=== PATIENT | male | born 1965 | race American Indian/Alaskan Native ===

== ENCOUNTER 2018-07-24 09:57 | Emergency (ER) | payer MEDICAID ==
[2018-07-24 11:10] VITALS: BMI 30.4
[2018-07-24 11:15] VITALS: RESP 18; TEMP 98.5
--- NOTE | 2018-07-24 11:37 | ED PDOC ---
Arrival/HPI - General Chief Complaint: Rib Injury Time Seen by Provider: 07/24/18 11:16 Historian: Patient - History of Present Illness Narrative History of Present Illness (Text): 07/24/18 11:31 Patient is a 53 year old M presenting with 1 day history of R sided chest pain. He reports the pain is on his R anterior chest and R anterior back along dermatomal distribution. He reports that is persistent but worse with movement. Denies trauma. Denies heavy lifting at work. Denies shortness of breath, fever, cough, uri symptoms, flank pain, nausea/vomiting, diarrhea, change in bowel or bladder habits. Denies hematuria. Denies rash. Reports hx of cholecystectomy. Time/Duration: 24 hours Symptom Onset: Gradual Symptom Course: Unchanged Activities at Onset: Light Context: Home Past Medical History - Provider Review Nursing Documentation Reviewed: Yes - Cardiac Hx Cardiac Disorders: Yes Hx Hypertension: Yes - Endocrine/Metabolic Hx Endocrine Disorders: Yes Hx Diabetes Mellitus Type 2: Yes - Psychiatric Hx Substance Use: No - Surgical History Hx Cholecystectomy: Yes - Anesthesia Hx Anesthesia: Yes Hx Anesthesia Reactions: No Hx Malignant Hyperthermia: No Family/Social History - Physician Review Nursing Documentation Reviewed: Yes Family/Social History: No Known Family HX Smoking Status: Heavy Smoker > 10 Cigarettes Daily Hx Alcohol Use: No Hx Substance Use: No Allergies/Home Meds Allergies/Adverse Reactions: Allergies No Known Allergies Allergy (Verified 07/24/18 11:10) Review of Systems - Review of Systems Constitutional: absent: Fevers Eyes: absent: Vision Changes ENT: absent: Hearing Changes Respiratory: absent: SOB, Cough, Sputum, Wheezing Cardiovascular: Chest Pain. absent: Palpitations, Edema, Calf Pain, ELIZALDE, Orthopnea, Syncope Gastrointestinal: absent: Abdominal Pain, Constipation, Diarrhea, Nausea, Vomiting Genitourinary Male: absent: Dysuria Skin: absent: Rash Neurological: absent: Headache, Dizziness, Focal Weakness Psychiatric: absent: Anxiety, Depression Physical Exam Vital Signs Reviewed: Yes Vital Signs Temp Pulse Resp BP Pulse Ox 07/24/18 11:10 98.5 F 85 18 106/71 97 Temperature: Afebrile Blood Pressure: Normal Pulse: Regular Respiratory Rate: Normal Appearance: Positive for: Well-Appearing, Non-Toxic, Comfortable Pain Distress: None Mental Status: Positive for: Alert and Oriented X 3 - Systems Exam Head: Present: Atraumatic, Normocephalic Pupils: Present: PERRL Extroacular Muscles: Present: EOMI Conjunctiva: Present: Normal Mouth: Present: Moist Mucous Membranes Neck: Present: Normal Range of Motion Respiratory/Chest: Present: Clear to Auscultation, Good Air Exchange. No: Respiratory Distress, Accessory Muscle Use Cardiovascular: Present: Regular Rate and Rhythm Abdomen: No: Tenderness, Distention Upper Extremity: Present: Normal Inspection Lower Extremity: Present: Normal Inspection. No: Edema, CALF TENDERNESS Neurological: Present: GCS=15, CN II-XII Intact, Speech Normal, Gait Normal Psychiatric: Present: Alert, Oriented x 3 Medical Decision Making ED Course and Treatment: 07/24/18 11:40 EKG shows NSR at 71bpm with no ST changes 07/24/18 13:55 Chest X-ray reviewed by radiologist, shows no active disease. 07/24/18 13:[address] due to persistent right sided chest pain, however patient disagreed and eloped from the ER. 07/24/18 14:39 Patient returned and agreed to CT. Now patient refusing to stay for imaging. I am concerned that this presentation is early shingles due to dermatome but cannot r/o dissection or other life threatening pathology 07/24/18 14:42 The patient is choosing to leave against medical advice. I have personally explained to the patient that choosing to do so may result in permanent bodily harm or . I have discussed at great length that without further evaluation and monitoring there may be unforeseen circumstances and/or deterioration causing permanent bodily harm or as a result of their choice. The patient is alert, oriented, and shows the mental capacity to make clear decisions regarding the patients health care at this time. The patient continues to wish to leave against medical advice. In light of the patients decision to leave against medical advice, follow-up has been arranged and the patient is aware of the importance to following up as instructed. The patient has been advised that they should return to the emergency room immediately if they change their mind at any time, or if their condition begins to change or worsen in any way. 07/24/18 14:52 Now agrees to stay 07/24/18 16:07 CT chest/abd: IMPRESSION: No acute intrathoracic or intra-abdominal findings. 07/24/18 16:08 Pain has been for >1 day, patient's only risk factor is age, presentation atypical for acs and ekg WNL. Trop and d-dimer negative. Thought to be early shingles vs muscle strain. Instructed to follow-up with PMD and return immediately for anti-virals if rash develops. - RAD Interpretation Radiology Orders: 07/24/18 11:26 CHEST TWO VIEWS (PA/LAT) [RAD] [employer]: Radiologist - EKG Interpretation Interpreted by ED Physician: Yes Type: 12 lead EKG Disposition/Present on Arrival - Present on Arrival Any Indicators Present on Arrival: No History of DVT/PE: No History of Uncontrolled Diabetes: No Urinary Catheter: No History of Decub. Ulcer: No History Surgical Site Infection Following: None - Disposition Have Diagnosis and Disposition been Completed?: Yes Diagnosis: Right-sided chest pain Disposition: HOME/ ROUTINE Disposition Time: 14:41 Condition: GOOD Discharge Instructions (ExitCare): Chest Pain (ED) Additional Instructions: Follow-up with PMD within 2 days. Return to Emergency department if condition worsens. Return immediately if you develop any rash. Prescriptions: Ibuprofen [Motrin] 400 mg PO Q6 PRN #30 tab PRN Reason: Pain, Moderate (4-7) Referrals: PCP,NO [Primary Care Provider] - Follow up with primary Forms: [facility] (German), WORK NOTE
[2018-07-24 12:30] LABS: BASO # 0.02 K/mm3 (0.0-2.0); BASO % 0.2 % (0.0-3.0); EOS # 0.2 (0.0-0.7); EOS % 1.7 % (1.5-5.0); GRAN # 6.97 (1.4-6.5); HEMOGLOBIN 14.3 g/dL (14.0-18.0); LYMPH # 2.7 (1.2-3.4); LYMPH % 25.7 % (22.0-35.0); MEAN CELL VOLUME 83.9 fl (80.0-105.0); MEAN CORPUSCULAR HEMOGLOBIN 27.8 pg (25.0-35.0); MEAN CORPUSCULAR HGB CONC 33.2 g/dl (31.0-37.0); MEAN PLATELET VOLUME 9.3 fl (7.0-11.0); MONO # 0.6 (0.1-0.6); MONO % 5.4 % (1.0-6.0); RBC 5.14 10^6/uL (3.5-6.1); RED CELL DISTRIBUTION WIDTH 13.5 % (11.5-14.5); WHITE BLOOD COUNT 10.4 10^3/uL (4.5-11.0)
[2018-07-24 12:42] LABS: ALB/GLOB RATIO 0.9 (1.1-1.8); ALBUMIN 4.3 g/dL (3.0-4.8); ALT/SGPT 33 U/L (7-56); AST/SGOT 23 U/L (17-59); BLOOD UREA NITROGEN 9 mg/dL (7-21); CALCIUM 9.3 mg/dL (8.4-10.5); GFR NON-AFRICAN AMERICAN > 60
[2018-07-24 12:53] LABS: TROPONIN I < 0.01 ng/mL
--- NOTE | 2018-07-24 13:25 | RAD ---
Date of service: 07/24/2018 HISTORY: R sided chest pain COMPARISON: No prior. TECHNIQUE: Chest PA and lateral FINDINGS: LUNGS: No active pulmonary disease. PLEURA: No significant pleural effusion identified. No pneumothorax apparent. CARDIOVASCULAR: No aortic atherosclerotic calcification present. Normal cardiac size. No pulmonary vascular congestion. OSSEOUS STRUCTURES: No significant abnormalities. VISUALIZED UPPER ABDOMEN: Normal. OTHER FINDINGS: None. IMPRESSION: No active disease.
[2018-07-24] MEDS ORDERED: Iohexol 350 MG/100 ML VIAL ONE (14:03)
--- NOTE | 2018-07-24 16:09 | CT ---
Date of service: 07/24/2018 PROCEDURE: CT Chest and abdomen with intravenous and oral contrast HISTORY: R chest/abdominal pain COMPARISON: None available. TECHNIQUE: IV dose administered: 100 cc of Omni 350 Radiation dose: Total exam DLP = 870.73 mGy-cm. This CT exam was performed using one or more of the following dose reduction techniques: Automated exposure control, adjustment of the mA and/or kV according to patient size, and/or use of iterative reconstruction technique. FINDINGS: CT CHEST: LUNGS: Clear. No nodule, mass or consolidation. MEDIASTINUM: Unremarkable. Normal caliber aorta and pulmonary arterial trunk. No aortic dissection. Normal size heart. LYMPH NODES: Unremarkable. PLEURA: Unremarkable. No pneumothorax. No pleural fluid. BONES: Unremarkable. OTHER FINDINGS:: None. CT ABDOMEN: LIVER: Unremarkable. No gross lesion or ductal dilatation. GALLBLADDER AND BILE DUCTS: Gallbladder removed. PANCREAS: Unremarkable. No gross lesion or ductal dilatation. SPLEEN: Unremarkable. ADRENALS: Unremarkable. No mass. KIDNEYS AND URETERS: Unremarkable. No hydronephrosis. No solid mass. VASCULATURE: Unremarkable. No aortic aneurysm. No aortic atherosclerotic calcification or mural plaque present. STOMACH AND BOWEL: Unremarkable, as visualized. The entire bowel was not visualized, as the pelvis was not included in this study. PERITONEUM: Unremarkable. No free fluid. No free air. LYMPH NODES: Unremarkable. No enlarged lymph nodes. BONES: No acute fracture. OTHER FINDINGS: None. IMPRESSION: No acute intrathoracic or intra-abdominal findings.
[2018-07-24 16:33] VITALS: BP 135/78; PULSE 88; O2SAT 98
--- NOTE | 2018-07-24 16:53 | CARD ---
APPROVED REPORT Date of service: 07/24/2018 EKG Measurement Heart [id number] <Conclusion> Normal sinus rhythm Possible Left atrial enlargement Borderline ECG
== END 2018-07-24 16:33 | disposition home or self-care (01) ==
LOC: ED 09:57 → MERGE 09:57 → ED 16:33
DX: R07.9 Chest pain, unspecified (principal); I10 Essential (primary) hypertension; E11.9 Type 2 diabetes mellitus without complications; F17.210 Nicotine dependence, cigarettes, uncomplicated; Z90.49 Acquired absence of other specified parts of digestive tract
CPT/HCPCS: 71046; 71260; 74160; 80053; 82550; 84484; 85025; 85378; 93005; 96372; 99283; J1885; Q9967